=== PATIENT | male | born 1990 | race Caucasian/White ===

== ENCOUNTER 2019-12-18 13:42 | Emergency (ER) | payer SELFPAY ==
[2019-12-18 13:44] VITALS: BP 166/103; PULSE 95; RESP 20; TEMP 36.1; O2SAT 97; BMI 47.7
--- NOTE | 2019-12-18 13:55 | CT_ITS ---
STUDY: CT PELVIS WITH CONTRAST REASON FOR EXAM: Male, 28 years old. PT STATED PAIN WHEN SITTING OR DURING BM, R/O RECTAL ABSCESS RADIATION DOSAGE (If Supplied By Facility): CTDIvol = ( 28.21 ) mGy, DLP = ( 2677.80 ) mGycm TECHNIQUE: Transaxial imaging of the pelvis was performed without oral contrast. Contast was administered intravenously. Individualized dose optimization techniques were used for this CT. COMPARISON: None. FINDINGS: Normal urinary bladder. Normal visualized small intestine. Normal visualized colon. Visualized normal appendix. There is no pelvic fluid. There is no pelvic lymphadenopathy or mass lesion. Normal visualized prostate gland. Normal visualized pelvic arteries. Normal visualized abdominal wall. Portions of the lateral thighs and flanks are excluded from view. Normal osseous structures. CT/Pelvis WITH IV Contrast IMPRESSION: Normal enhanced CT of the pelvis. No perirectal abscess is identified. Electronically Signed: Nolan Vance, at 16:39 EST Tel , Service support ,
--- NOTE | 2019-12-18 14:03 | ED.DCSUM_ITS ---
History of Present Illness Chief Complaint: Other, Pain/Inj Informant: Patient Onset: Days Context: Gradual Onset Timing: Continuous Current Severity: Moderate Maximum Severity: Moderate Narrative: Patient is an otherwise healthy 28-year-old male who presents to the emergency department with rectal pain. He states that it is been going on for about a week. He thought he may have had a hemorrhoid. He states that he used topical hemorrhoid suppositories which seemed to improve the pain, but today when he went to move his bowels, he had with spelt likes spasm of his rectum. He states he has been very uncomfortable since then. He denies any bright red blood per rectum. He has no history of inflammatory bowel disease. Prior similar symptoms: No Recent Illness/Hospitalization: No Past Medical History Primary Care Physician: Caleb Barfield MD [STAFF PHYSICIAN] - Prior records reviewed: Yes Past Medical History: None Surgical History: no surgical history Review of Systems General: Denies: Chills, Fever, Sweats Eyes: Denies: Visual changes - bilaterally, Diplopia ENT: Denies: Rhinorrhea, Sore throat Cardiovascular: Denies: Chest pain, Palpitations Respiratory: Denies: Dyspnea, Cough, Dyspnea on exertion Gastrointestinal: Reports: Constipation. Denies: Abdominal pain, Nausea, Vomiting, Diarrhea, Melena, Hematochezia Genitourinary: Denies: Dysuria, Hematuria, Frequency Musculoskeletal: Denies: Back pain, Extremity Pain Skin: Denies: Rash, Wounds Neurological: Denies: Headache, Weakness, Numbness Physical Exam Vital Signs/Narrative: Vital Signs Temp Pulse Resp BP Pulse Ox 12/18/19 13:44 97.0 F L 95 20 H 166/103 H 97 Inital Vital Signs reviewed: Yes General: Well nourished, Well developed, No Acute Distress Head: Normocephalic, Atraumatic Eyes: Perrl, EOMI ENT: Moist mucous membranes, No rhinorrhea Neck: Supple, Nontender Cardiovascular: Regular rate, Regular rhythm, No murmurs Respiratory: No distress, CTA bilaterally, Chest nontender Abdomen: Soft, Nontender, Nondistended, Normal bowel sounds Back: Nontender, Normal Inspection Extremities: Nontender, No edema Skin: Normal color, No rash Neurological: Alert, Oriented x3, Cranial nerves II-XII grossly intact, Normal Strength, Normal Sensation Psychological: Normal affect, Normal Mood Diagnostic/Tx/Re-eval Abnormal Lab Results 12/18/19 12/18/19 14:43 14:43 WBC 11.0 RBC 5.26 Hgb 15.7 Hct 45.2 MCV 85.9 MCH 29.8 MCHC 34.7 RDW Std Deviation 41.6 RDW Coeff of Greg 13.5 Plt Count 269 MPV 10.2 Immature Gran % (Auto) 0.500 Neut % (Auto) 67.7 Lymph % (Auto) 22.1 [place] % (Auto) 8.4 Eos % (Auto) 0.9 Baso % (Auto) 0.4 Absolute Neuts (auto) 7.5 Absolute Lymphs (auto) 2.43 Nucleated RBC % 0 Sodium 138 Potassium 4.1 Chloride 105 Carbon Dioxide 29.0 Anion Gap 4 L BUN 13 Creatinine 0.83 Estim Creat Clear Calc 148.03 Est GFR (MDRD) Af Amer 142 Est GFR (MDRD) Non-Af 118 BUN/Creatinine Ratio 15.6 Glucose 90 Calcium 9.2 Total Bilirubin 0.90 AST 24 ALT 81 H Alkaline Phosphatase 109 Total Protein 8.0 Albumin 3.8 Globulin 4.2 Albumin/Globulin Ratio 0.9 Clinical Impression(s) from Imaging Studies Pelvis CT 12/18/19 13:55 IMPRESSION: Normal enhanced CT of the pelvis. No perirectal abscess is identified. Electronically Signed: Nolan Vance, at 16:39 EST Tel , Service support , - Medical Decision Making The patient presents with worsening rectal pain. I do not see definitive abscess but he was markedly tender on rectal exam. There was no visible hemorrhoid and no stigmata of recent bleeding. With his pain, I did want to rule out definitive deep space infection. Screening labs were obtained which were unremarkable. The patient's pain was addressed and is feeling markedly improved. Patient underwent CT imaging of the pelvis. This was reviewed. There is no evidence of deep space infection. Clinically, this seems more like a proctitis. I am going to treat the patient as such. He has no evidence of abscess. He is feeling improved. Impression 1. Proctitis ED Disposition - Plan for ED Patient: Instructions: RECTAL BLEED, Stable Prescriptions: Ciprofloxacin [Cipro] 500 mg PO BID #14 tab Prescription Printed Docusate Sodium [Colace] 100 mg PO DAILY #20 cap Prescription Printed metroNIDAZOLE [Flagyl] 500 mg PO Q8H #21 tab Prescription Printed Hydrocodone Bitart/Apap 5-325 [[place] 5MG-325MG] 1 tab PO Q6H PRN PRN 3 Days #10 tab PRN Reason: Pain Prescription Printed Referrals: Caleb Barfield MD [STAFF PHYSICIAN] -
[2019-12-18 14:54] LABS: Absolute Lymphocyte Count 2.43 X10^3/uL (0.83-4.51); Absolute Neutrophil Count 7.5 X10^3/uL (2.0-7.7); Basophil# 0.04 X10^3/uL; Basophil% 0.4 % (0-1); Eosinophils% 0.9 % (0-5); Hematocrit 45.2 % (40-54); Hemoglobin 15.7 g/dL (13.0-16.5); Lymphocyte # 2.43 X10^3/ul (4.0); Lymphocyte % 22.1 % (19-41); Mean Corp Hgb Conc 34.7 g/dL (32-36); Mean Corpuscular Hgb 29.8 pg (27.0-32.0); Mean Corpuscular Volume 85.9 fL (80-94); Mean Platelet Vol. 10.2 fl (6.2-12.0); Monocyte# 0.93 X10^3/uL; Monocyte% 8.4 % (0-10); NRBC Flagged by Analyzer 0 % (0-5); Neutrophil # 7.47 X10^3/uL (2.7-7.7); Neutrophil % 67.7 % (47-70); Platelet Count 269 K/mm3 (150-450); RBC Distribution Width CV 13.5 % (11.6-14.6); RBC Distribution Width SD 41.6 fl (35.1-43.9); Red Blood Count 5.26 M/mm3 (4.6-6.2)
[2019-12-18] MEDS: Morphine 4 MG/ML Syringe IV (14:54)
[2019-12-18] MEDS: Ondansetron 4 MG/2 ML Vial IV (14:54)
[2019-12-18] MEDS: 0.9% Normal Saline 1,000 ML 1000 ML IV (14:54)
[2019-12-18 15:13] LABS: ALB/GLOB Ratio 0.9 RATIO (0.9-2.4); AST(SGOT) 24 U/L (15-37); Alanine Aminotransfer ALT/SGPT 81 U/L (16-61); Albumin, Serum 3.8 g/dL (3.2-5.0); Alkaline Phosphatase 109 U/L (45-117); Anion Gap 4 (5-15); BUN 13 mg/dL (7-18); BUN/Creat Ratio 15.6 RATIO (10-20); Calcium,Total 9.2 mg/dL (8.5-10.1); Chloride 105 mmol/L (98-107); Creatinine, Serum 0.83 mg/dL (0.70-1.30); EST Glomerular Filtration Rate 118 mL/min (>60); Est Glom Filt Rate - Afr Amer 142 mL/min (>60); Estimated Creatinine Clearance 148.03 ml/min; Globulin 4.2 g/dL (2.2-4.2); Glucose 90 mg/dL (74-106); Potassium 4.1 mmol/L (3.5-5.1); Sodium Level 138 mmol/L (136-145)
[2019-12-18 16:54] VITALS: BP 147/78; PULSE 106; RESP 16; O2SAT 95
--- NOTE | 2019-12-18 16:54 | ED.RN ---
IV DC'ED, CATHETER INTACT, SMALL GAUZE DRESSING PLACED. DISCHARGE INSTRUCTIONS GIVEN TO AND REVIEWED WITH PATIENT, PATIENT DENIES QUESTIONS OR CONCERNS AND VOICES UNDERSTANDING OF DISCHARGE INSTRUCTIONS. PT AMBULATES OUT OF ROOM WITHOUT DIFFICULTY.
== END 2019-12-18 16:56 | disposition home or self-care (01) ==
LOC: ED 15:11
PROVIDERS: Emergency Provider Emergency Medicine
DX: K64.9 Unspecified hemorrhoids (principal)
CPT/HCPCS: 72193; 80053; 85025; 96361; 96374; 96375; 99283; J7030; Q9967; A4216; J2405

== ENCOUNTER 2019-12-20 21:21 | Emergency (ER) | payer SELFPAY ==
[2019-12-20 21:25] VITALS: BP 162/96; PULSE 90; RESP 16; TEMP 36.7; O2SAT 97; BMI 49.3
--- NOTE | 2019-12-20 22:23 | ED.RN ---
THIS RN IN TO ASSESS PATIENT, PATIENT STATES HE IS NO LONGER HAVING THE PAIN AND WOULD LIKE TO LEAVE. PATIENT STATES HE DOES NOT WANT TO BE SEEN.
--- NOTE | 2019-12-20 23:59 | ED.DCSUM_ITS ---
- ER Visit Summary Date of Service: 12/20/19 Chief Complaint: [Constipation] History of Present Illness: The patient is a 28 M [] Physical Examination: [] Test Results: [] Emergency Department Course and Treatment: [Patient is a 28-year-old male that is presenting for rectal pain. Patient walked into the emergency room without shoes and wearing shorts even though it is in the 30s outside. Patient was roomed by decided he felt better and left the ER before I could evaluate him. I only saw the patient as he was walking out. Of note, patient was seen for the same complaint 2 days ago and evaluated in our ER. He was diagnosed with proctitis and started on antibiotics.] Treatment Plan: [] Disposition: Left without being seen Impression: [] This note was generated with [employer] dictation software. It may contain incorrect words, spelling, and punctuation that were not noted in review of the chart prior to signing ED Disposition - Plan for ED Patient: Disposition: LEFT WITHOUT BEING SEEN Referrals: Care Physician,No Primary [Primary Care Provider] -
== END 2019-12-20 22:36 ==
LOC: ED 22:23
PROVIDERS: Emergency Provider Emergency Medicine
DX: K59.00 Constipation, unspecified (principal)